=== PATIENT | male | born 1950 | race African-American/Black ===

== ENCOUNTER 2019-05-17 04:27 | Observation (INO) | payer OTHER, MEDICARE ==
[~2019-05-17] VITALS: Ht 185.4 cm; Wt 108.9 kg
[2019-05-17 05:03] LABS: BASOPHILS ABSOLUTE AUTO 0.01 K/mm3 (0.00-0.23); BASOPHILS PERCENT AUTO 0 % (0-2); EOSINOPHILS PERCENT AUTO 0 % (0-6); Hematocrit 41.1 % (37.0-53.0); Hemoglobin 13.7 g/dL (13.5-17.5); IMMATURE GRAN ABSOLUTE AUTO 0.06 K/mm3 (0.00-0.10); IMMATURE GRAN PERCENT AUTO 1 % (0-1); LYMPHOCYTES ABSOLUTE AUTO 0.71 K/mm3 (0.84-5.20); LYMPHOCYTES PERCENT AUTO 6 % (21-46); MONOCYTES ABSOLUTE AUTO 0.32 K/mm3 (0.16-1.47); MONOCYTES PERCENT AUTO 3 % (4-13); Mean Corpuscular HGB 28.5 pg (26.0-34.0); Mean Corpuscular HGB Conc 33.3 g/dL (31.5-36.5); Mean Corpuscular Volume 86 fL (80-100); Mean Platelet Volume 9.4 fL (9.1-12.4); NEUTROPHILS PERCENT AUTO 90 % (41-73); Platelet Count 254 K/mm3 (150-400); RDW Coefficient Variation 14.9 % (11.7-14.2); RDW Standard Deviation 47.4 fL (35.1-46.3)
[2019-05-17 05:05] LABS: Calcium, Ionized (POC) 1.11 mmol/L (1.10-1.46); Chloride (POC) 99 mmol/L (98-108); Creatinine (POC) 1.4 mg/dL (0.8-1.3); Glucose (ISTAT POC) 194 mg/dL (70-99); Hemoglobin (POC) 14.6 g/dL (13.5-17.5); Potassium (POC) 3.3 mmol/L (3.5-5.5); Sodium (POC) 141 mmol/L (135-148); Total CO2 (POC) 30 mmol/L (21-32)
[2019-05-17 05:18] LABS: International Normalized Ratio 1.01; Prothrombin Time Results 10.7 Sec (9.7-11.5)
[2019-05-17 05:27] LABS: Albumin, Blood 3.9 g/dL (3.4-5.0); Albumin/Globulin Ratio 0.8 (0.8-1.8); Bilirubin, Total 0.5 mg/dL (0.1-1.0); Bun/Creatinine Ratio 17.8 (12.0-20.0); Calcium, Blood 9.8 mg/dL (8.5-10.1); Creatinine, Blood 1.35 mg/dL (0.60-1.20); Globulin, Blood 5.2 g/dL (2.2-4.0); Potassium, Blood 3.3 mmol/L (3.5-5.5); Total Protein, Blood 9.1 g/dL (6.4-8.2)
[2019-05-17] MEDS ORDERED: SILDENAFIL CIT100 MG PO (05:44)
[2019-05-17] MEDS ORDERED: OMEP20ER PO (05:45)
[2019-05-17] MEDS ORDERED: AMLODIPINE BESY10 MG PO (05:45)
[2019-05-17] MEDS ORDERED: ATORVASTATIN CA20 MG PO (05:45)
[2019-05-17] MEDS ORDERED: POTA10T PO (05:45)
[2019-05-17] MEDS ORDERED: LOSARTAN-HCTZ1 EACH PO (05:46)
--- NOTE | 2019-05-17 07:04 | NUR ---
PT ADMITTED PT ADMITTED AT 0654. PT IN STABLE CONDITION WITH VSS. PT NAUSEATED. EMESIS BAG GIVEN. PROTONIX DRIP STARTED. WILL CONTINUE TO MONITOR.
[2019-05-17 11:27] LABS: Hematocrit 44.1 % (37.0-53.0); Hemoglobin 13.4 g/dL (13.5-17.5)
--- NOTE | 2019-05-17 15:53 | NUR ---
PT TAKEN FOR ENDO PT TAKEN FOR UPPER ENDOSCOPY.
--- NOTE | 2019-05-17 16:19 | NUR ---
05/17/19 1619 Orin Mark History, Chart, Medications and Allergies reviewed before start of procedure.PATIENT DETERMINED TO BE ASA APPROPRIATE FOR PROPOFOL SEDATION PRIOR TO START OF PROCEDURE BY .MONITOR INTACT WITH CONTINUOUS PULSE OXIMETRY AND INTERMITTENT BP.3-LEAD EKG REVIEWED WITH PHYSICIAN PRIOR TO START OF PROCEDURE.O2 VIA N/C INTACT THROUGHOUT SEDATION/PROCEDURE.
[2019-05-17 17:33] LABS: Hematocrit 38.1 % (37.0-53.0); Hemoglobin 12.5 g/dL (13.5-17.5)
--- NOTE | 2019-05-17 18:02 | NUR ---
SHIFT SUMMARY PT HAD UPPER ENDOSCOPY COMPLETED THIS SHIFT. NO BLEEDING FOUND. ESOPHAGITIS FOUND. PT STABLE AT THIS TIME. NO BM'S OR EMESIS ON THIS SHIFT. PT STARTED ON FULL LIQUID DIET. TOLERATING WELL. PT TRANSITIONED TO PROTONIX IV BID. NO OTHER CHANGES IN ASSESSMENT AT THIS TIME. VSS. WILL CONTINUE TO MONITOR UNTIL TURNOVER IS COMPLETE.
[2019-05-17 23:47] LABS: Hematocrit 35.5 % (37.0-53.0); Hemoglobin 11.7 g/dL (13.5-17.5)
[2019-05-18 04:54] LABS: Hematocrit 35.1 % (37.0-53.0); Hemoglobin 11.6 g/dL (13.5-17.5)
[2019-05-18 08:38] LABS: Hematocrit 39.8 % (37.0-53.0)
[2019-05-18 09:03] LABS: Bun/Creatinine Ratio 14.8 (12.0-20.0); Calcium, Blood 8.8 mg/dL (8.5-10.1); Creatinine, Blood 1.49 mg/dL (0.60-1.20); Potassium, Blood 3.3 mmol/L (3.5-5.5)
[2019-05-18 14:08] LABS: Hematocrit 35.8 % (37.0-53.0); Hemoglobin 11.7 g/dL (13.5-17.5)
[2019-05-18] MEDS ORDERED: PANT40 PO (14:47)
--- NOTE | 2019-05-18 15:10 | NUR ---
PT REQUESTED TO GO HOME HE HAS ANIMALS TO ATTEND TO. DR MERLOS STATED SHE WAS AWAITING CLEARNACE FROM DR CANALES. AT 2:00 PT CALLED THIS NURSE TO SAY THAT THE LATEST HE COULD STAY WAS 3:00 HE LIVES IN [place]. THIS NURSE CALLED DR HASTINGS OFFICE AND LEFT WORD ABOUT THE PT REQUEST TO LEAVE. @ 2:[address] MERLOS AND SHE SAID BASED ON DR CANALES'S CHART NOTE SHE WOULD PUT ORDERS IN TO DC HOME AND FOLLOW UP WITHIN 2 WEEKS. FOLLOW UP APPT WAS SCHEDULED WITH DR CANALES. ALL MED ORDERS WERE REVIEWED WITH PT WHO VERBALIZED AN UNDERSTANDING AND THE ORDERS WERE FAXED TO [facility] PER PT REQUEST. PT DENIES ANY NAUSEA OR BLOOD IN STOOL TODAY. IV WAS REMOVED WITH NO ISSUE. ALL PERSONAL BELONGINGS SENT WITH PT. PT STABLE UPON DC.
== END 2019-05-18 15:25 | disposition home or self-care (01) ==
LOC: ER 04:27 → MEDS 04:28
PROVIDERS: Emergency Medicine; Internal Medicine; ADMIT Hospitalist
DX: K25.4 Chronic or unspecified gastric ulcer with hemorrhage (principal); K26.4 Chronic or unspecified duodenal ulcer with hemorrhage; K21.0 Gastro-esophageal reflux disease with esophagitis; N17.9 Acute kidney failure, unspecified; E31.21 Multiple endocrine neoplasia [MEN] type I; I10 Essential (primary) hypertension; E78.5 Hyperlipidemia, unspecified; E55.9 Vitamin D deficiency, unspecified; Z87.891 Personal history of nicotine dependence; Z79.899 Other long term (current) drug therapy
CPT/HCPCS: 36415; 80047; 80048; 80053; 82941; 85014; 85018; 85025; 85610; 86850; 86900; 86901; 93005; 93010; 96361; 96374; 96375; 96376; 99285-25; C9113; G0378; J2250; J2405; J2704; J3480; J7030; J7120